=== PATIENT | female | born 1960 | race Caucasian/White ===

== ENCOUNTER 2020-08-31 10:41 | Emergency (ER) | payer SELFPAY ==
[~2020-08-31] VITALS: Ht 162.6 cm; Wt 88.4 kg
[2020-08-31 10:41] VITALS: BP 150/93
[2020-08-31 12:04] LABS: BASOPHILS % (AUTO) 0 % (0-1); EOSINOPHILS % (AUTO) 0 % (1-7); LYMPHOCYTES % (AUTO) 39 % (22-44); MEAN CORPUSCULAR HGB CONC 32.8 g/dL (32.4-35.8); MEAN PLATELET VOLUME 8.2 fL (7.4-10.4); MONOCYTES % (AUTO) 6 % (2-9); NEUTROPHILS % (AUTO) 55 % (42-75); PLATELET COUNT 187 x10^3/uL (130-400); RED BLOOD COUNT 5.42 x10^6/uL (3.82-5.3); RED CELL DISTRIBUTION WIDTH 13.8 % (9.6-15.2)
[2020-08-31 12:11] LABS: MD NO
[2020-08-31 12:14] LABS: ALBUMIN 3.1 g/dL (3.4-5.0); ANION GAP 7 mmol/L (5-15); CHLORIDE 110 mmol/L (98-107)
[2020-08-31 12:18] LABS: ALANINE AMINOTRANSFERASE 191 U/L (12-78); ALKALINE PHOSPHATASE 112 U/L (45-117); BILIRUBIN,TOTAL 0.4 mg/dL (0.2-1.0); CREATININE 0.87 mg/dL (0.55-1.02)
--- NOTE | 2020-08-31 12:38 | NUR ---
CONVERSION MAN: PT TO ROOM FROM LOBBY
--- NOTE | 2020-08-31 12:59 | NUR ---
PT CAME IN CO OF FEVER, BODY ACHES, CHILLS. "I HAVE THE FLU. AND MY WORK NEEDS ME TO GET CLEARED". PT IS RESTING IN GURNEY. PT IS ANXIOUS - "I DONT HAVE INSURANCE IM NOT GOING TO BE ABLE TO PAY FOR ALL THIS". EKG COMPLETE. LABS DRAWN. PT CONNECTED TO MONITORING EQUIPMENT.
--- NOTE | 2020-08-31 13:10 | NUR ---
PT. REFUSED XRAY AT 1307.
--- NOTE | 2020-08-31 14:09 | NUR ---
PT REFUSED X RAY. WAS CONCERNED ABOUT COST OF ER VISIT. AND PT LEFT WITHOUT DC PAPERWORK
== END 2020-08-31 14:11 | disposition home or self-care (01) ==
LOC: ED 13:00
DX: U07.1 COVID-19 (principal); R00.0 Tachycardia, unspecified; I51.7 Cardiomegaly; I25.2 Old myocardial infarction
CPT/HCPCS: 80053; 85025; 87635; 93005; 99284